=== PATIENT | female | born 1970 | race Caucasian/White ===

== ENCOUNTER → 2016-11-11 | Day surgery (SDC) | payer MEDICAID, OTHER ==
[~2016-11-11] VITALS: Ht 167.6 cm; Wt 74.0 kg
[2016-11-11] VITALS (13 sets, daily range): BP systolic 112–156; BP diastolic 72–87; PULSE 80–110; RESP 8–27; Ht 167.6 cm; Wt 74.0 kg
[~2016-11-11] MED LIST: BUPIVACAINE 0.5% (SDV) 30 ML INJ ONE; CEFAZOLIN 1 GM INJ ONE; CLIN-73 PO; DEXAMETHASONE 4 MG/ML 1 ML INJ ONE; DIPHENHYDRAMINE 50 MG INJ IV PRN; EPHEDrine SULFATE 50 MG/5 ML SYG ONE; FAMOTIDINE 20 MG INJ ONE; FENTAnyl 50 MCG/ML VIAL IV PRN; FENTAnyl 50 MCG/ML VIAL ONE; GABA300C; HYDR-906 PO; HYDROmorphONE (0.2 MG/ML) 10ML SYG IV PRN; IBUP-1542 PO; LIDOCAINE 1% (MDV) 20 ML INJ ONE; LIDOCAINE 1% (STERILE-PAK) 30 ML INJ ONE; MEPERIDINE 25 MG INJ IV PRN; MEPERIDINE 25 MG INJ ONE; MIDAZOLAM 1 MG/ML 2 ML INJ ONE; NO NEW MEDS; ONDANSETRON 4 MG INJ IV PRN; ONDANSETRON 4 MG INJ ONE; PHENYLephrine (100 MCG/ML) 5ML SYG ONE; POLYMYXIN/BACITRACIN 1L IRRIG ONE; ROPIVACAINE 0.5 % 30 ML VIAL ONE
--- NOTE | 2016-11-11 16:32 | HPN ---
Date/Time of Note Date/Time of Note DATE: 11/11/16 TIME: 16:32 Interval H&P Admission Note Pt. seen H&P reviewed: No system changes NOÉ FIELDS Nov 11, 2016 16:32
[2016-11-11] MEDS: FENTAnyl 50 MCG/ML VIAL IV PRN ×3 (19:54→20:43)
[2016-11-11] MEDS: HYDROmorphONE (0.2 MG/ML) 10ML SYG IV PRN ×3 (20:06→21:05)
--- NOTE | 2016-11-11 20:46 | RADRPT ---
PROCEDURE: Intraoperative imaging of the left wrist with fluoroscopy. CLINICAL INDICATION: Left wrist pain. Intraoperative. TECHNIQUE: 5 images of the left wrist were obtained in the operating room with an image intensifie r. No radiologist was in attendance. 13.9 seconds of fluoroscopy time was used. COMPARISON: No prior study is available for comparison. FINDINGS: Images demonstrate open reduction and internal fixation of the distal radius with a plate and multip le screws. IMPRESSION: 1. Intraoperative imaging of the left wrist. RPTAT: QQ .Jace Kwon MD, MD Date Time Electronically viewed and signed by .Jace Kwon MD, on 11/11/2016 20:45 .R/
--- NOTE | 2016-12-04 12:45 | OPR ---
DATE OF OPERATION: 11/11/2016 SURGEON: Mukesh Hayden MD ANESTHESIA: General. PREOPERATIVE DIAGNOSIS: DICTATION ENDED HERE Dictated By: Mukesh Hayden MD /leisat/ec /Document#: [id number] MTDD
--- NOTE | 2016-12-05 11:04 | OPR ---
DATE OF OPERATION: 11/11/2016 ANESTHESIA: General. PREOPERATIVE DIAGNOSIS: Left distal radius fracture, intra- articular, greater than 3 fragments. POSTOPERATIVE DIAGNOSIS: Left distal radius fracture, intra- articular, greater than 3 fragments. OPERATION PERFORMED: Open reduction, internal fixation of left intra-articular distal radius fracture, greater than 3 fragments. OPERATIVE FINDINGS AT SURGERY: Early healing and callus formation with displaced intra-articular distal radius fracture. INDICATIONS FOR PROCEDURE: A 46-year-old female with injury to her left wrist. She was seen in clinic and diagnosed with a displaced distal radius fracture with more than 30 degrees of dorsal tilt and shortening of the articular surface. We discussed the options and she elected to proceed with surgical intervention, understanding the risks and benefits. We submitted for stat authorization but patient was delayed in getting to surgery resulting in more than 6 weeks of time between her injury and surgery. We discussed that this may be much more difficult and outcomes not as good as primary surgery within the first 2 weeks. With that said, patient elected to proceed with surgery understanding the risks and benefits. OPERATIVE PROCEDURE: Patient was seen in the preoperative area and all patient's questions were answered. Again, she gave informed consent, understanding risks and benefits. She was taken to the operative suite and placed in supine position. She was placed under general anesthesia and tourniquet placed on the left upper extremity. Ancef 2 g given and the left upper extremity was prepped with ChloraPrep stick and draped in usual sterile fashion. An Esmarch bandage was used to exsanguinate the extremity and tourniquet inflated to 250 mmHg. A modified volar Jose approach to the distal radius was utilized with sharp dissection carried down through skin and subcutaneous tissue. The FCR tendon sheath was identified. It was incised along its radial border. The FCR tendon was retracted ulnarly and the FCR subsheath incised. The FCL tendon was retracted ulnarly and the pronator quadratus was identified. Bovie electrocautery was used to incise the pronator quadratus along its radial and distal borders. A periosteal elevator was used to elevate the pronator quadratus off the fracture site and distal radius and the fracture site with deformity was visualized. There was significant callus formation and extension of the fracture site. A rongeur was used to debride some of the callus volarly and a [place] elevator was used to mobilize the fracture site. The fracture was brought into a more anatomic position and a [employer] distal radius plate was applied across the fracture site on the volar distal radius. A screw was placed in the oblong hole and 2 distal screws were placed. X-ray imaging confirmed near anatomic alignment and appropriate hardware positioning. Additional locking screws were placed distally and cortical screws, as well as 1 locking proximally. The fracture was visualized under x-ray imaging and was found to have near anatomic alignment with appropriate hardware positioning. The wound was copiously irrigated and skin closed with 4-0 nylon. Xeroform was placed on the wound followed by sterile gauze, Webril and a short-arm splint. Tourniquet was deflated after 81 minutes and patient was awakened from anesthesia. She was taken to the postoperative suite in stable condition and tolerated the procedure well with no complications. SPECIMENS: None. ESTIMATED BLOOD LOSS: 5 cc. COUNTS: Sponge, instrument and needle counts correct. TOURNIQUET TIME: 81 minutes. CONDITION ON DISCHARGE: Stable. Dictated By: Mukesh Hayden MD /mai/alee /Document#: [id number] JORGE
== END | disposition home or self-care (01) ==
LOC: SDS 09:06
PROVIDERS: ATTEND Orthopaedic Surgery Hand Surgery
DX: S52.572D Other intraarticular fracture of lower end of left radius, subsequent encounter for closed fracture with routine healing (principal); X58.XXXD Exposure to other specified factors, subsequent encounter
CPT/HCPCS: 25609; 73090; 84703; J0690; J1170; J2175; J2250; J2405; J2795; J3010; Z7512; Z7610; J1100; J2370

== ENCOUNTER 2018-05-21 15:01 | Emergency (ER) | payer OTHER ==
[~2018-05-21] VITALS: Ht 170.2 cm; Wt 80.0 kg
[2018-05-21 15:05] VITALS: RESP 18; Ht 170.2 cm; Wt 80.0 kg
--- NOTE | 2018-05-21 15:51 | ERD ---
ER Documentation Chief Complaint Chief Complaint dental problem, right facial swelling starting last night HPI 48-year-old female, presents the emergency department, complaining of right fa cial edema and tenderness, associated with right upper dental pain. The symptoms started 1 day ago. The patient has been taking Tylenol Motrin with mild improvement of the symptoms. The patient denies shortness of breath, no difficulty swallowing. She has an appointment with her dentist next week. ROS All systems reviewed and are negative except as per history of present illness. Medications Home Meds Active Scripts Ibuprofen* (Motrin*) 400 Mg Tab, 400 MG PO Q8, #15 TAB Prov:MICHELLE SALVADOR MD 05/21/18 Clindamycin Hcl* (Clindamycin Hcl*) 300 Mg Capsule, 300 MG PO TID for 10 Days, CAP Prov:MICHELLE SALVADOR MD 05/21/18 Allergies Allergies: Coded Allergies: Penicillins (Verified Allergy, Mild, 11/11/16) PMhx/Soc History of Surgery: No Anesthesia Reaction: No Hx Neurological Disorder: No Hx Respiratory Disorders: No Hx Cardiac Disorders: No Hx Psychiatric Problems: No Hx Miscellaneous Medical Probl: No Hx Alcohol Use: No Hx Substance Use: No Hx Tobacco Use: No Smoking Status: Never smoker FmHx Family History: diabetes; No coronary disease Physical Exam Vitals Vital Signs Date Temp Pulse Resp B/P (MAP) Pulse Ox O2 O2 Flow FiO2 Time Delivery Rate 05/21/18 85 191/81 99 Room Air 18:12 (117) 05/21/18 97.9 84 18 145/87 99 15:05 (106) Physical Exam Const: No acute distress Head: Significant right facial edema, with tenderness, erythema and fluctuance over the right upper gingival area. Eyes: Normal Conjunctiva ENT: Normal External Ears, Nose and Mouth. Neck: Full range of motion. No meningismus. Resp: Clear to auscultation bilaterally Cardio: Regular rate and rhythm, no murmurs Abd: Soft, non tender, non distended. Normal bowel sounds Skin: No petechiae or rashes Back: No midline or flank tenderness Ext: No cyanosis, or edema Neur: Awake and alert Psych: Normal Mood and Affect Results 24 hrs Laboratory Tests Test 05/21/18 16:40 POC Beta HCG, Qualitative NEGATIVE Current Medications Medications Dose Sig/Elizabeth Start Time Status Last (Trade) Ordered Route PRN Stop Time Admin Dose Reason Admin Lidocaine 5 ml ONCE ONCE 05/21/18 DC (Xylocaine INFIL 16:00 05/21/18 1% (Mpf)) 16:01 Clindamycin 50 ml @ 50 ONCE IVPB 05/21/18 DC 05/21/18 HCl/ mls/hr 16:30 05/21/18 16:48 Dextrose 17:29 8 mg ONCE ONCE 05/21/18 DC 05/21/18 Dexamethasone IV 16:30 05/21/18 16:47 (Decadron) 16:31 Ketorolac 15 mg ONCE STAT 05/21/18 DC 05/21/18 Tromethamine IV 16:28 05/21/18 16:47 (Toradol) 16:30 Procedures/MDM Differential diagnosis include but not limited to: Dental abscess, parotitis, sialoadenitis, lymphadenopathy, facial abscess. Low suspicion for systemic infection. Physical examination and clinical presentation consistent most likely with dental abscess. During the ED course the patient remained stable, no new complaints. Clinical impression discussed with the patient who agrees with management. Incision and drainage: Informed consent obtained, risk and benefits discussed with patient. Indication: Dental abscess Location: Right upper area Area cleaned and sterilized with chlorhexidine solution, 2 mL of lidocaine without epi was infiltrated in the area of the incision. 5 mm incision was made with 11 blade scalpel abscess was drained obtaining purulent material that was suctioned. The patient tolerated well the procedure without complications The patient is stable to be treated outpatient and will be discharged home. Some side effects of prescribed medications (headache, rash, nausea, vomiting, diarrhea, drowsiness, habituation, bleeding, hypertension, interactions with other medications) were reviewed. The patient was instructed to follow up with the primary care provider and dentist in the next 48h. If symptoms persist, worsen or new symptoms develop, then patient should return to the ED immediately. Instructions explained and given directly by me to the patient with acknowledgment and demonstrated understanding. Disclaimer: Inadvertent spelling and grammatical errors are likely due to EHR/dictation software use and do not reflect on the overall quality of patient care. Also, please note that the electronic time recorded on this note does not necessarily reflect the actual time of the patient encounter. Departure Diagnosis: Primary Impression: Dental abscess Condition: Stable Additional Instructions: Thank you very much for allowing us to participate in your care. Your health and safety is our top priority at [facility]. Call your primary care doctor TOMORROW for an appointment during the next 2-4 days and bring all the information and medications prescribed. Have prescriptions filled and follow precisely the directions on the label. If the symptoms get worse and your provider is unavailable, return to the Emergency Department immediately. MICHELLE SALVADOR MD May 21, 2018 15:51
[2018-05-21] MEDS ORDERED: LIDOCAINE 1% (MPF) 5 ML VIAL INFIL ONE (16:00)
[2018-05-21] MEDS ORDERED: KETOROLAC 15 MG INJ IV STA (16:28)
[2018-05-21] MEDS ORDERED: CLINDAMYCIN 600 MG/D5W (PMX) 50 ML IVPB SCH (16:30)
[2018-05-21] MEDS ORDERED: DEXAMETHASONE 10 MG/ML 1 ML INJ IV ONE (16:30)
[2018-05-21] MEDS ORDERED: CLIN300C10 PO (18:02)
[2018-05-21] MEDS ORDERED: IBUP-1561 PO (18:02)
[2018-05-21 18:12] VITALS: BP 191/81; PULSE 85
== END 2018-05-21 18:14 | disposition home or self-care (01) ==
LOC: FTE 15:01
DX: K04.7 Periapical abscess without sinus (principal)
CPT/HCPCS: 41800; 81025; 96365; 96375; J1100; J1885; Z7502; Z7610